=== PATIENT | male | born 1975 | race Caucasian/White ===

== ENCOUNTER 2017-09-29 01:12 | Emergency (ER) | payer MEDICAID ==
[2017-09-29 01:17] VITALS: BP 164/92
== END 2017-09-29 02:39 | disposition left against medical advice (07) ==
LOC: ER 01:12
DX: Z53.21 Procedure and treatment not carried out due to patient leaving prior to being seen by health care provider (principal)

== ENCOUNTER 2018-05-13 01:39 | Emergency (ER) | payer MEDICAID ==
[2018-05-13 02:23] VITALS: BP 148/90
[2018-05-13] MEDS ORDERED: TETRACAINE HCL 0.5% OPH SOLN 4 ML OD ONE (02:32)
[2018-05-13] MEDS ORDERED: TETRACAINE HCL 0.5% OPH SOLN 4 ML ONE (02:33)
[2018-05-13] MEDS ORDERED: POLYMYXIN B SULFATE/TMP OPH SOLN (10 ML/ER DISP) OS PRN (02:59)
--- NOTE | 2018-05-13 03:06 | ER Document Report ---
ED General - General Chief Complaint: Foreign Body in Eye Stated Complaint: EYE INJURY Time Seen by Provider: 05/13/18 02:32 Notes: Patient is a 42-year-old male without chronic medical problems who presents with concerns of metallic foreign body lodged in his left eye. Patient states that he was welding metal 2 days ago and that the metal object "exploded" and multiple small metallic foreign bodies came into his eye. States that he irrig ated the eye copiously and thought he had gotten all of the foreign bodies out. However states that he continued to have an irritating, scratching, constant sensation to the left eye. Describes the pain as being moderately severe in intensity. Nothing improved or worsen the discomfort. Notes associated photophobia. No blurring of his vision. Has not seen an lumpia wrapper maker regarding today's concerns. States that his noticed that he appeared to have a lodged foreign body in the left eye prompting him to come to the emergency department this evening. No history of similar symptoms in the past. No additional injuries or concerns. TRAVEL OUTSIDE OF THE [place] IN LAST 30 DAYS: No - Related Data Allergies/Adverse Reactions: No Known Allergies Allergy (Verified 09/29/17 01:13) Past Medical History - General Information source: Patient - Social History Smoking Status: Current Every Day Smoker Frequency of alcohol use: Occasional Drug Abuse: None Lives with: Spouse/Significant other Family History: Reviewed & Not Pertinent Review of Systems - Review of Systems Notes: Constitutional: Negative for fever. HENT: Negative for sore throat. Eyes: Positive for hyperlacrimation of the left eye, foreign body of left eye, left eye pain and photosensitivity Cardiovascular: Negative for chest pain. Respiratory: Negative for shortness of breath. Gastrointestinal: Negative for abdominal pain, vomiting or diarrhea. Genitourinary: Negative for dysuria. Musculoskeletal: Negative for back pain. Skin: Negative for rash. Neurological: Negative for headaches, weakness or numbness. 10 point ROS negative except as marked above and in HPI. Physical Exam - Vital signs Vitals: Temp Pulse Resp BP Pulse Ox 98.2 F 74 14 148/90 H 100 05/13/18 02:22 05/13/18 02:22 05/13/18 02:22 05/13/18 02:22 05/13/18 02:22 Interpretation: Hypertensive Notes: PHYSICAL EXAMINATION: GENERAL: Well-appearing, well-nourished and in no acute distress. HEAD: Diffuse conjunctival injection on the left. There are 2 small, black metallic foreign bodies lodged in the cornea at roughly the 4 o'clock position using the pupil as a landmark. Extraocular motions intact. Pupillary reflex intact. Fluorescein staining of the left eye reveals an associated corneal abrasion around the area of the foreign bodies. EYES: sclera anicteric, conjunctiva are normal. ENT: Moist mucous membranes. NECK: Normal range of motion LUNGS: Normal work of breathing HEART: 2+ radial pulses bilaterally EXTREMITIES: no pitting or edema. No cyanosis. NEUROLOGICAL: No focal neurological deficits. Moves all extremities spontaneously and on command. PSYCH: Normal mood, normal affect. SKIN: Warm, Dry, normal turgor, no rashes or lesions noted. Course - Re-evaluation Re-evalutation: 05/13/18 03:01 Patient presents with 2 small metallic foreign bodies lodged in roughly the 4 o'clock position on the pupil within the cornea. These were removed after anesthetization with tetracaine using a 24-gauge needle without difficulty. Unfortunate after removal of the second foreign body was noted that there was a rust ring where the foreign body had been implanted. I did inform the patient that he would need to follow-up with ophthalmology for definitive treatment of this diagnosis. He has been started on Polytrim drops. Fluorescein staining does reveal an associated corneal abrasion where the foreign bodies had been located. Patient has extraocular motions are within normal limits. Pupillary response intact. Visual acuity testing at bedside 20/25 bilaterally. At this time will discharge with return precautions and follow-up recommendations. Verbal discharge instructions given a the bedside and opportunity for questions given. Medication warnings reviewed. Patient is in agreement with this plan and has verbalized understanding of return precautions and the need for ophthalmology follow-up in the next 24-72 hours. - Vital Signs Vital signs: Temp Pulse Resp BP Pulse Ox 98.2 F 74 14 148/90 H 100 05/13/18 02:22 05/13/18 02:22 05/13/18 02:22 05/13/18 02:22 05/13/18 02:22 Discharge - Discharge Clinical Impression: Corneal rust ring of left eye Foreign body of left eye Qualifiers: Encounter type: initial encounter Qualified Code(s): T15.92XA - Foreign body on external eye, part unspecified, left eye, initial encounter Condition: Good Disposition: HOME, SELF-CARE Instructions: Corneal Foreign Body with Rust ([facility]), Corneal Foreign Body ([facility]) Additional Instructions: You have a corneal abrasion after having a metallic foreign body removed from your eye. This should improve in the next several days. However, unfortunately because you did wait to come to the hospital you have developed a rust ring in your cornea. For this complication, you do need to follow-up with ophthalmology. Please see Dr. Espinoza on Monday. You should apply the antibiotic eye drops to the affected eye every 3 hours while awake. Return if you have decreased vision, worsening pain, increased drainage from the eye, you notice redness or puffiness around the eye, you develop a fever greater than 101F, or you have any other symptoms that are concerning to you. Referrals: TAD ESPINOZA DO [ACTIVE STAFF] - 05/14/18
== END 2018-05-13 03:14 | disposition home or self-care (01) ==
LOC: ER 01:39
DX: T15.02XA Foreign body in cornea, left eye, initial encounter (principal); X58.XXXA Exposure to other specified factors, initial encounter; W20.8XXA Other cause of strike by thrown, projected or falling object, initial encounter; Y93.89 Activity, other specified; F17.200 Nicotine dependence, unspecified, uncomplicated
CPT/HCPCS: 99283; J3490 ×2